=== PATIENT | female | born 1985 | race African-American/Black ===

== ENCOUNTER 2017-11-07 16:17 | Emergency (ER) | payer MEDICAID, OTHER ==
[~2017-11-07 16:17] MED LIST: HYDR-3288 PO; MACR100C2 PO; NAPR500 PO; ZOFR4TAB3 SL
[2017-11-07 17:49] VITALS: BP 114/49; PULSE 57; RESP 16; TEMP 98.7; O2SAT 100
--- NOTE | 2017-11-07 20:53 | PD ---
HPI Chief Complaint: Psychiatric Symptoms Time Seen by Provider: 20:50 Travel History International Travel<30 days: No Contact w/Intl Traveler<30days: No Traveled to known affect area: No History of Present Illness HPI Patient is a 32-year-old female presenting to the emergency department as a transfer for psychiatric evaluation under a Bear act. Patient reported anxiety , depression and suicidal ideations. She presents complaining of a headache, her pain is a 5 out of 10. She has had headaches similar to this point in the past. She denies any visual changes, nausea, dizziness, photophobia. PFSH Past Medical History Depression: Yes Headaches: Yes Immunizations Current: Yes ?: Unknown Past Surgical History Cholecystectomy: Yes Social History Alcohol Use: No Tobacco Use: No Substance Use: Yes (MARIJUANA DAILY) Allergies-Medications (Allergen,Severity, Reaction): Coded Allergies: Penicillins (Verified Allergy, Unknown, 11/07/17) Per paperwork sent from [facility] on 11/07/17. (HIVES 11/01/15) acetaminophen (Verified Allergy, Unknown, 11/07/17) Per paperwork sent from [facility] on 11/07/17. (Tongue Swelling 11/06/17) ibuprofen (Verified Allergy, Unknown, 11/07/17) Per paperwork sent from [facility] on 11/07/17. (Hives 11/01/15) metoclopramide (Verified Allergy, Unknown, Hives, 11/07/17) Per paperwork sent from [facility] on 11/07/17. (Severe, AMS 07/21/16) naproxen (Verified Allergy, Unknown, Hives, 11/07/17) ondansetron (Verified Allergy, Unknown, 11/07/17) Per paperwork sent from [facility] on 11/07/17. (Rash 10/20/13) promethazine (Verified Allergy, Unknown, 11/07/17) Per paperwork sent from [facility] on 11/07/17. (Severe, Tongue Swelling 08/30/13) sulfamethoxazole (Verified Allergy, Unknown, 11/07/17) Per paperwork sent from [facility] on 11/07/17. (Severe, Swollen Tongue 07/16/13) terbutaline (Verified Allergy, Unknown, 11/07/17) Per paperwork sent from [facility] on 11/07/17. (Unknown 07/16/13) tramadol (Verified Allergy, Unknown, Hives, 11/07/17) Per paperwork sent from [facility] on 11/07/17. (Severe, swelling 08/30/13) trimethoprim (Verified Allergy, Unknown, 11/07/17) Per paperwork sent from [facility] on 11/07/17. (Severe, Swollen Tongue 07/16/13) Reported Meds & Prescriptions Reported Meds & Active Scripts Active No Active Prescriptions or Reported Medications Review of Systems Except as stated in HPI: all other systems reviewed are Neg Neurologic: Positive: Headache Psychiatric: Positive: Anxiety, Depression, Suicidal Ideations Physical Exam Narrative GENERAL: Well-developed, well-nourished, alert -Scottish female. Resting in no acute distress. SKIN: Warm and dry. HEAD: Normocephalic. EYES: No scleral icterus. No injection or drainage. NECK: Supple, trachea midline. No JVD or lymphadenopathy. CARDIOVASCULAR: Regular rate and rhythm without murmurs, gallops, or rubs. RESPIRATORY: Breath sounds equal bilaterally. No accessory muscle use. GASTROINTESTINAL: Abdomen soft, non-tender, nondistended. MUSCULOSKELETAL: No cyanosis, or edema. BACK: Nontender without obvious deformity. No CVA tenderness. Data Data Last Documented VS Vital Signs Date Time Temp Pulse Resp B/P (MAP) Pulse Ox O2 Delivery O2 Flow Rate FiO2 11/07/17 17:49 98.7 57 16 114/49 (70) 100 Room Air Orders Orders Diet Regular Basic (11/07/17 Dinner) Psych Screen (11/07/17 17:32) Prochlorperazine Inj (Compazine Inj) (11/07/17 21:00) Diphenhydramine Inj (Benadryl Inj) (11/07/17 21:00) MDM Medical Decision Making Medical Screen Exam Complete: Yes Emergency Medical Condition: Yes Medical Record Reviewed: Yes Interpretation(s) Vital Signs Date Time Temp Pulse Resp B/P (MAP) Pulse Ox O2 Delivery O2 Flow Rate FiO2 11/07/17 17:49 98.7 57 16 114/49 (70) 100 Room Air Differential Diagnosis Depression versus anxiety versus suicidal ideations versus migraine versus tension headache versus other Narrative Course Patient is a 32-year-old female presenting under Bear act for psychiatric evaluation. Medical records reviewed. Patient complained of headache, Compazine and Benadryl ordered. Patient is medically clear for psychiatric evaluation. Diagnosis Primary Impression: Medical clearance for psychiatric admission Scripts No Active Prescriptions or Reported Meds Condition: Stable Elin Barraza November 07, 2017 20:53
[2017-11-07] MEDS ORDERED: PROCHLORPERAZINE INJ 10 MG/2 ML VIAL IV PUSH ONE (21:00)
[2017-11-07] MEDS ORDERED: diphenhydrAMINE HCL 50 MG/ML VIAL IM ONE (21:00)
[2017-11-07 22:08] VITALS: BP 117/67; PULSE 66; RESP 16; TEMP 98.6; O2SAT 100
--- NOTE | 2017-11-08 11:40 | PD ---
History of Present Illness Chief Complaint: Psychiatric Symptoms Time Seen by Provider: 11:10 Travel History International Travel<30 Days: No Contact w/Intl Traveler<30days: No Known affected area: No Legal Status Legal Status: Involuntary Bear Act Signed By: Tejas STEIN [[id number]] Bear Act Comment: CERTIFICATE OF PROFESSIONAL INTIATING INVOLUNTARY EXAMINATION11/06/17@1830 History of Present Illness: History of Present Illness HPI Patient is a 32-year-old, -Indian, single female with no previous psychiatric history, presenting to the emergency department as a transfer from [facility] under an involuntary status. Patient presented to that hospital with complaints of migraine headaches and allegedly reported feeling suicidal and depressed and therefore she was placed under an involuntary status. Patient admits that she is sad to the doctor that at times the pain was unbearable that she felt depressed and hopeless and at times made her feel like she did not want to live anymore. Patient denies any suicidal ideation, intent or plan. The patient did not make any attempt at harming herself. She goes on to state" a year ago I did take some cocaine and Percocet because I was having so much pain but I learned my lesson. That is not what I want to do to my family and my daughter." Documentation from [facility] is reviewed. Patient is positive for opiates and states she was prescribed Lortabs several weeks ago for headache. Patient is seen. She is engaging and cooperative. There is no evidence of any psychosis, no rubén or hypomania. No objective clinical signs of depression. The patient is requesting to be discharge. She is awaiting to get her insurance so that she can schedule an appointment with a primary care physician. PFSH Past Medical History Depression: Yes Headaches: Yes Immunizations Current: Yes ?: Unknown Past Surgical History Cholecystectomy: Yes Psychiatric History Psychiatric History Hx Psychiatric Treatment: NONE History of Inpatient Treatment: No Guns or firearms in home: No Social History Single, has a 13-year-old daughter. She lives with her fianc and is planning on getting in December. Patient is employed full-time. Hx Alcohol Use: No Hx Tobacco Use: No Hx Substance Use: No (MARIJUANA DAILY) Hx of Substance Use Treatment: No Family Psychiatric History Negative Allergies-Medications (Allergen,Severity, Reaction): Coded Allergies: Penicillins (Verified Allergy, Unknown, 11/07/17) Per paperwork sent from [facility] on 11/07/17. (HIVES 11/01/15) acetaminophen (Verified Allergy, Unknown, 11/07/17) Per paperwork sent from [facility] on 11/07/17. (Tongue Swelling 11/06/17) ibuprofen (Verified Allergy, Unknown, 11/07/17) Per paperwork sent from [facility] on 11/07/17. (Hives 11/01/15) metoclopramide (Verified Allergy, Unknown, Hives, 11/07/17) Per paperwork sent from [facility] on 11/07/17. (Severe, AMS 07/21/16) naproxen (Verified Allergy, Unknown, Hives, 11/07/17) ondansetron (Verified Allergy, Unknown, 11/07/17) Per paperwork sent from [facility] on 11/07/17. (Rash 10/20/13) promethazine (Verified Allergy, Unknown, 11/07/17) Per paperwork sent from [facility] on 11/07/17. (Severe, Tongue Swelling 08/30/13) sulfamethoxazole (Verified Allergy, Unknown, 11/07/17) Per paperwork sent from [facility] on 11/07/17. (Severe, Swollen Tongue 07/16/13) terbutaline (Verified Allergy, Unknown, 11/07/17) Per paperwork sent from [facility] on 11/07/17. (Unknown 07/16/13) tramadol (Verified Allergy, Unknown, Hives, 11/07/17) Per paperwork sent from [facility] on 11/07/17. (Severe, swelling 08/30/13) trimethoprim (Verified Allergy, Unknown, 11/07/17) Per paperwork sent from [facility] on 11/07/17. (Severe, Swollen Tongue 07/16/13) Reported Meds & Prescriptions Reported Meds & Active Scripts Active No Active Prescriptions or Reported Medications Mental Status Examination Appearance: Appropriate Consciousness: Alert Orientation: x4 Motor Activity: Normal gait Speech: Unremarkable Language: Adequate Fund of Knowledge: Adequate Attention and Concentration: Adequate Memory: Unremarkable Mood: Appropriate, Good Affect: Appropriate Thought Process & Associations: Intact, Logical, Goal directed Thought Content: Appropriate Hallucination Type: None Delusion Type: None Suicidal Ideation: No Suicidal Plan: No Suicidal Intention: No Homicidal Ideation: No Homicidal Plan: No Homicidal Intention: No Insight: Fair Judgment: Adequate MDM Medical Decision Making Medical Record Reviewed: Yes Assessment/Plan Patient is a 32-year-old, -Indian, single female with no previous psychiatric history, presenting to the emergency department as a transfer from [facility] under an involuntary status. Patient presented to that hospital with complaints of migraine headaches and allegedly reported feeling suicidal and depressed and therefore she was placed under an involuntary status. Patient admits that she is sad to the doctor that at times the pain was unbearable that she felt depressed and hopeless and at times made her feel like she did not want to live anymore. Patient denies any suicidal ideation, intent or plan. The patient did not make any attempt at harming herself. She goes on to state" a year ago I did take some cocaine and Percocet because I was having so much pain but I learned my lesson. That is not what I want to do to my family and my daughter." Patient is cognitively intact. She has adequate protective factors in place. She is future oriented. Patient is looking forward to getting her insurance that she get on treatment for her migraine headaches. Patient does not present any evidence of unstable mental illness as defined under the Bear act. Patient is provided psychoeducation and instructed to return to the ED if any changes. Does not meet criteria for Bear act. Lift the BA. Psychiatric clear for discharge. Orders Orders Diet Regular Basic (11/07/17 Dinner) Psych Screen (11/07/17 17:32) Prochlorperazine Inj (Compazine Inj) (11/07/17 21:00) Diphenhydramine Inj (Benadryl Inj) (11/07/17 21:00) Diet Regular Basic (11/08/17 Breakfast) Diet Regular Basic (11/08/17 Lunch) Results Vital Signs Date Time Temp Pulse Resp B/P (MAP) Pulse Ox O2 Delivery O2 Flow Rate FiO2 11/07/17 22:08 98.6 66 16 117/67 (84) 100 Room Air 11/07/17 17:49 98.7 57 16 114/49 (70) 100 Room Air Diagnosis Primary Impression: Medical clearance for psychiatric admission Additional Impression: Adjustment reaction Psychiatrically Cleared: Yes Med/ Other Pt Specific Info: No Meds Exist/No RX given Prescriptions No Active Prescriptions or Reported Meds Disposition: 01 DISCHARGE HOME Condition: Stable Problem Qualifiers Additional Impression: Adjustment reaction Qualified Codes: F43.20 - Adjustment disorder, unspecified Joycelyn Clemens November 08, 2017 11:40
--- NOTE | 2017-11-08 12:10 | PD ---
Physical Exam Date Seen by Provider: November 08, 2017 Time Seen by Provider: 12:07 Data Data Last Documented VS Vital Signs Date Time Temp Pulse Resp B/P (MAP) Pulse Ox O2 Delivery O2 Flow Rate FiO2 11/07/17 22:08 98.6 66 16 117/67 (84) 100 Room Air Orders Orders Diet Regular Basic (11/07/17 Dinner) Psych Screen (11/07/17 17:32) Prochlorperazine Inj (Compazine Inj) (11/07/17 21:00) Diphenhydramine Inj (Benadryl Inj) (11/07/17 21:00) Diet Regular Basic (11/08/17 Breakfast) Diet Regular Basic (11/08/17 Lunch) MDM Supervised Visit with LEONARD: No Narrative Course 32-year-old female brought into the ED as a Bear act. She was transferred from outside facility. She was initially evaluated by NGHIA Mai. She was treated for headache and medically cleared. She was then evaluated by DrAilyn by Joycelyn Clemens accounting instructor. Bear act was lifted. Patient's diagnosed with adjustment disorder with a plan to follow-up with outpatient psychiatric services. The patient is stable and discharged home. Diagnosis Primary Impression: Medical clearance for psychiatric admission Additional Impression: Adjustment reaction Qualified Codes: F43.20 - Adjustment disorder, unspecified Referrals: Psychiatrist Patient Instructions: General Instructions, Mood Disorders (ED) Departure Forms: Tests/Procedures Additional Instruction: Follow-up with outpatient psychiatry services as discussed. Return to the ED for worsening symptoms or any urgent or emergent medical condition. Scripts No Active Prescriptions or Reported Meds Disposition: 01 DISCHARGE HOME Condition: Stable Terri Rajan November 08, 2017 12:10
== END 2017-11-08 12:16 | disposition home or self-care (01) ==
LOC: NEPJ 16:17
DX: Z02.89 Encounter for other administrative examinations (principal); F43.20 Adjustment disorder, unspecified
CPT/HCPCS: 96372; 96374; 99284; J0780; J1200